=== PATIENT | male | born 1950 | race Two or more races ===

== ENCOUNTER 2024-09-08 13:50 | Observation (INO) | payer OTHER, SELFPAY ==
--- NOTE | 2024-09-07 07:00 | EKG_ITS ---
[facility] Test Date: 2024-09-07 Pat Name: ANGELO CHOW Department: Room: - Gender: Male [employer] Engineer: SANDRO : 1950 Requested By: Darrin Falcon Order Number: [id number] Reading MD: Darrin Falcon Measurements Intervals [place] Rate: 52 P: 55 ND: 159 QRS: -68 QRSD: 101 T: 66 QT: 430 QTc: 402 Interpretive Statements SINUS BRADYCARDIA WITH OCCASIONAL SUPRAVENTRICULAR PREMATURE COMPLEXES LEFT ANTERIOR FASCICULAR BLOCK [QRS AXIS <= -45, QR IN I, RS IN II] No previous ECG available for comparison /store/S0/[id number]/ecg/[id number].pdf
[2024-09-07 07:22] VITALS: BMI 26.4
[2024-09-07 08:14] LABS: Collection Type, Urine Catheter; Squamous Epithelial Cell,Urine 0 /hpf (0-5)
[2024-09-07 09:23] LABS: Basophils # (Auto) 0.0 Thou/mm3 (0.0-0.2); Basophils % (Auto) 1 % (0-2.5); Eosinophils # (Auto) 0.2 Thou/mm3 (0.0-0.5); Eosinophils % (Auto) 3 % (0-10); Hematocrit 43.6 % (41.0-53.0); Hemoglobin 14.2 g/dL (13.5-16.0); Immature Granulocytes Auto 0.01 Thou/mm3 (0.00-0.00); Lymphocytes # (Auto) 2.1 Thou/mm3 (1.0-4.8); Lymphocytes % (Auto) 33 % (10-50); Mean Corpuscular HGB Conc 32.6 g/dl (31.0-37.0); Mean Corpuscular Hemoglobin 30.4 pg (25.0-35.0); Mean Corpuscular Volume 93 fL (80-100); Monocytes # (Auto) 0.5 Thou/mm3 (0.0-0.8); Monocytes % (Auto) 8 % (0-12); Neutrophils # (Auto) 3.5 Thou/mm3 (1.8-7.7); Neutrophils % (Auto) 55 % (37-80); Nucleated Red Blood Cell # 0.00 Thou/mm3 (0.00-0.00); Nucleated Red Blood Cell % 0 /100 WBC (0); Platelet Count 161 Thou/mm3 (140-440); RDW Standard Deviation 47.8 fL (35.1-43.9); Red Blood Count 4.67 Miln/mm3 (4.50-5.90); White Blood Count 6.3 Thou/mm3 (3.8-10.6)
[2024-09-07 09:31] LABS: Amorphous Crystals,Urine Present (Absent); Bacteria,Urine 1+; Bilirubin,Urine Negative (Negative); Blood,Urine Negative (Negative); Color,Urine Lt-Yellow (Lt Yel-Yel); Glucose, Urine Negative (Negative); Ketones,Urine Negative (Negative); Leukocyte Esterase,Urine Positive (Negative); Nitrite,Urine Positive (Negative); PH,Urine 7.5 (5.0-7.0); Protein,Urine Trace (Neg - Trace); RBC,Urine 7 /hpf (0-3); Specific Gravity,Urine 1.017 (1.001-1.035); Urobilinogen,Urine Negative mg/dL (0.0-1.0); WBC,Urine 37 /hpf (0-5)
[2024-09-07 09:41] LABS: Clarity,Urine Hazy (Clear/Hazy)
[2024-09-07 09:47] LABS: Alanine Aminotransferase 15 U/L (10-49); Albumin, Serum 4.1 gm/dL (3.4-4.8); Albumin/Globulin Ratio 1.8 (1.2-2.2); Alkaline Phosphatase 73 U/L (46-116); Anion Gap 10 (7-16); Aspartate Amino Transferase 21 U/L (0-34); BUN/Creatinine Ratio 22 Ratio (12-20); Bilirubin,Total 0.6 mg/dL (0.3-1.2); Blood Urea Nitrogen 20 mg/dL (9-23); Calcium 9.5 mg/dL (8.3-10.6); Calcium (Corrected) 9.5 mg/dL (8.5-10.1); Carbon Dioxide 29.5 mMol/L (20.0-31.0); Chloride 104 mMol/L (98-107); Creatinine (Component) 0.9 mg/dL (0.6-1.3); Estimated Creatinine Clearance 53.3 mL/min (>60); Globulin 2.3 gm/dL (2.3-3.5); Glucose 96 mg/dL (74-106); Osmolality,Calculated 287 (275-295); Potassium 4.3 mMol/L (3.4-5.1); Sodium 143 mMol/L (136-145); Total Protein 6.4 gm/dL (5.7-8.2); eGFR > 60 See Note
--- NOTE | 2024-09-07 11:01 | ESHP_ITS ---
RE: ARLENE CHOW : 1950 DATE OF ADMISSION: 09/07/2024 HISTORY OF PRESENT ILLNESS: The patient is an elderly male, Kyrgyz-speaking, with history of prostatism, prostatic obstruction, and urinary retention. The patient has recurrent urinary retention and has a Reed catheter in place. He is now scheduled to have a transurethral resection of prostate. The patient had a retention when he was in [place]. He had a catheter in. The patient had cystoscopy, which revealed moderate bilobed prostate. No bladder stones or tumors. The catheter was removed. The patient went into urinary retention again. Now, he is scheduled to have transurethral resection of the prostate. The patient previously had nocturia every half an hour with a slow urinary stream. PAST MEDICAL HISTORY: The patient is diabetic. PAST SURGICAL HISTORY: Previous surgeries included knee operations. ALLERGIES: NONE KNOWN. HOME MEDICATIONS: He takes Flomax. SOCIAL HISTORY: The patient has 7 children. PHYSICAL EXAMINATION: HEENT: Normal. NECK: Supple. LUNGS: Clear. HEART: Sounds were normal. ABDOMEN: Soft. GENITOURINARY: There is a Reed catheter in place. Testes are down in scrotum. RECTAL: Examination revealed moderately enlarged smooth prostate. LABORATORY DATA: The patient's PSA is 2.14. Serum creatinine is normal at 0.87. IMPRESSION: 1. Prostatic obstruction. 2. Prostatism. 3. Recurrent urinary retention. PLAN: Cystoscopy and transurethral resection of prostate. Planned procedure, risks, and complications have been discussed with the patient. The patient has understood them and agreed to proceed. DT: 10:34:20 TT: 11:01:00 Ref: [id number] - TID: [id number]
[2024-09-08] VITALS (17 sets, daily range): BP systolic 112–153; BP diastolic 53–92; PULSE 61–92; RESP 11–19; TEMP 36.1–36.4; O2SAT 93–100; BMI 25.5; BMI 23.8
[2024-09-08] MEDS: PIPER/TAZO 3.375 GM PREMIX 3.375 GM/50 ML BAG IV (08:41)
--- NOTE | 2024-09-08 09:28 | SUR.PHASEI ---
pt received from OR in recovery bay 7. pt asleep but responds to voice, breahting unlabored on 8l oxymask. v/s stable. pt dressing to penis cdi, 22fr [address]. report recevied from Cheri ISAACS and Shaggy LOPEZ.
--- NOTE | 2024-09-08 10:15 | ESOP_ITS ---
RE: ARLENE CHOW : 1950 DATE OF OPERATION: 09/08/2024 PREOPERATIVE DIAGNOSES: Prostatic obstruction, prostatism, recurrent urinary retention. POSTOPERATIVE DIAGNOSES: Prostatic obstruction, prostatism, recurrent urinary retention. PROCEDURE PERFORMED: Cystoscopy and transurethral resection of prostate. ANESTHESIA: General. INDICATION: The patient is a 74-year-old gentleman with history of prostatism, prostatic obstruction, and recurrent urinary retention. He has been wearing Reed catheter for a while. Cystoscopy revealed obstructive bilobar prostate. He is now scheduled to have transurethral resection of prostate. Planned procedure, risks, and complications have been discussed with the patient. The patient has understood them and agreed to proceed. DESCRIPTION OF PROCEDURE: After the patient was brought to the operating table under adequate general anesthesia and dorsal lithotomy position, the Reed catheter from the bladder was removed. Parts were prepped and draped in the usual fashion. Cystoscopy was then carried out, which revealed adequate urethral meatus, normal-appearing urethra. Prostatic urethra revealed bilobed obstructive prostate, moderate size. There are no intravesical stones or tumors. The patient has a catheter cystitis. He has been wearing catheter for quite some time. Ureteral orifices are found to be normal in position and appearance. Using a 24 Nepali Storz resectoscope, transurethral resection of the prostate was then carried out. Median lobe, right lobe, and left lobe and the roof of the prostate were resected up to the capsule. Minimal bleeding was encountered, which was controlled by using electrocoagulation. Both ureteral orifices, verumontanum, and external urethral sphincter were prevented from any injury. Resected chips were removed from the bladder by using Rose evacuator. The resectoscope was then removed and a 22-Nepali three-way Reed catheter was inserted into the bladder and was left indwelling. Irrigation of catheter revealed clear return. Catheter was then connected to a sterile bag and the patient was then transferred to the recovery room in a satisfactory condition having tolerated the entire procedure well. DT: 09:41:17 TT: 10:12:00 Ref: [id number] - TID: [id number]
[2024-09-08] MEDS: RINGERS LACTATED 1000 ML 1,000 ML 100 ML IV ×2 (10:20→18:03)
--- NOTE | 2024-09-08 11:43 | SUR.PHASEII ---
pt awake, alert, able to follow commands, breathing unlabored, 22F avila in place and draining with CBI running, VSS, pt denies pain, report from Hernandez LOPEZ
--- NOTE | 2024-09-08 12:14 | SUR.PHASEII ---
Report to Hernandez LOPEZ
--- NOTE | 2024-09-08 13:50 | SUR.PHASEII ---
pt awake and alert, breathing unlabored on room air. v/s stable. pt dressing to penis cdi. avila catheter in place. report called to Jose LOPEZ. pt will be transferred to room at this time.
[2024-09-08] MEDS: LEVOFLOXACIN/D5W 500 MG IVPB 500 MG/100 ML BAG 100 MG IV (17:22)
[2024-09-08] MEDS: TAMSULOSIN HCL 0.4 MG CAPSULE PO (20:43)
--- NOTE | 2024-09-08 21:00 | PC.NURSE ---
PATIENT FEELS PRESSURE ON ER ABDOMEN.BLADDER SCAN DONE 993MLS RESULT.3 WAY PORTILLO CATHETER IRRIGATED ORDERED.,WITH SMALL BLOOD CLOTS NOTED.AFTER IRRIGATION PATIENT FEELS RELIEVED.PORTILLO CATHETER OUTPUT EMPTIED 1,500MLS.WILL CONTINUE TO MONITOR.
[2024-09-08] MEDS: KETOROLAC INJ 30 MG/ML VIAL IVP (22:53)
[2024-09-09] VITALS: BP 112/60; PULSE 72; RESP 17; TEMP 36.2; O2SAT 99
[2024-09-09 04:00] VITALS: BP 126/77; PULSE 74; RESP 17; TEMP 36.3; O2SAT 97
[2024-09-09] MEDS: RINGERS LACTATED 1000 ML 1,000 ML 100 ML IV (04:31)
--- NOTE | 2024-09-09 04:32 | PC.NURSE ---
accessed pt's chart to assist main RN.
[2024-09-09] MEDS: HYDROcodone/APAP 5/325 TABLET 1 TAB PO (05:18)
[2024-09-09 08:00] VITALS: BP 130/72; PULSE 71; RESP 18; TEMP 36.1; O2SAT 94
[2024-09-09 08:32] LABS: Basophils # (Auto) 0.0 Thou/mm3 (0.0-0.2); Basophils % (Auto) 0 % (0-2.5); Eosinophils # (Auto) 0.0 Thou/mm3 (0.0-0.5); Eosinophils % (Auto) 0 % (0-10); Hematocrit 38.8 % (41.0-53.0); Hemoglobin 12.9 g/dL (13.5-16.0); Immature Granulocytes Auto 0.06 Thou/mm3 (0.00-0.00); Lymphocytes # (Auto) 1.2 Thou/mm3 (1.0-4.8); Lymphocytes % (Auto) 9 % (10-50); Mean Corpuscular HGB Conc 33.2 g/dl (31.0-37.0); Mean Corpuscular Hemoglobin 30.6 pg (25.0-35.0); Mean Corpuscular Volume 92 fL (80-100); Monocytes # (Auto) 0.8 Thou/mm3 (0.0-0.8); Monocytes % (Auto) 6 % (0-12); Neutrophils # (Auto) 11.5 Thou/mm3 (1.8-7.7); Neutrophils % (Auto) 84 % (37-80); Nucleated Red Blood Cell # 0.00 Thou/mm3 (0.00-0.00); Nucleated Red Blood Cell % 0 /100 WBC (0); Platelet Count 131 Thou/mm3 (140-440); RDW Standard Deviation 46.2 fL (35.1-43.9); Red Blood Count 4.21 Miln/mm3 (4.50-5.90); White Blood Count 13.7 Thou/mm3 (3.8-10.6)
[2024-09-09] MEDS: TAMSULOSIN HCL 0.4 MG CAPSULE PO (08:32)
[2024-09-09 08:56] LABS: Albumin, Serum 3.4 gm/dL (3.4-4.8); Anion Gap 7 (7-16); BUN/Creatinine Ratio 16 Ratio (12-20); Blood Urea Nitrogen 14 mg/dL (9-23); Calcium 8.4 mg/dL (8.3-10.6); Calcium (Corrected) 8.9 mg/dL (8.5-10.1); Carbon Dioxide 27.9 mMol/L (20.0-31.0); Chloride 106 mMol/L (98-107); Creatinine (Component) 0.9 mg/dL (0.6-1.3); Estimated Creatinine Clearance 55.6 mL/min (>60); Glucose 131 mg/dL (74-106); Osmolality,Calculated 283 (275-295); Phosphorous 4.1 mg/dL (2.4-5.1); Potassium 4.0 mMol/L (3.4-5.1); Sodium 141 mMol/L (136-145); eGFR > 60 See Note
--- NOTE | 2024-09-09 10:52 | PC.SS ---
Patient Jose Manuel High is a 74 Year old male admitted for Prost. SS met with patient at bedside to discuss discharge plan and verify demographic information. Patient reports he lives at home with his , Eva High. he reports his daughter, Eva High is surrogate decision maker, [phone]. Patient reports that prior to admission he did not utilize any source of DME to assist with ambulation, patient is able to complete all ADL's independently. Patient reports his PCP is Mandeep Robbins. At time of discharge patient will return back home, patient's family will provide transportation. Next of kin: Daughter, Eva High [phone] Discharge Plan: Home
[2024-09-09 12:00] VITALS: BP 134/78; PULSE 63; RESP 17; TEMP 36.1; O2SAT 97
[2024-09-09] MEDS: LEVOFLOXACIN/D5W 500 MG IVPB 500 MG/100 ML BAG 100 MG IV (13:38)
--- NOTE | 2024-09-09 13:56 | PC.NURSE ---
Changed avila catheter drainage bag to leg bag at patient's request.
--- NOTE | 2024-09-09 14:12 | PC.SS ---
SS follow up note; Urine and Blood cultures pending, Patient will discharge home when medically cleared.
== END 2024-09-09 15:05 | disposition home or self-care (01) ==
LOC: S3NX 14:23
PROVIDERS: Anesthesiology; Admitting Provider Surgery; PCP Family Medicine; Referring Provider Surgery; Visit Provider Surgery
PROC: 0VT08ZZ Resection of Prostate, Via Natural or Artificial Opening Endoscopic (ICD-10-PCS; CPT 52601; principal; 2024-09-08 08:30)
DX: N40.1 Benign prostatic hyperplasia with lower urinary tract symptoms (principal); Z01.810 Encounter for preprocedural cardiovascular examination; R33.9 Retention of urine, unspecified; E11.9 Type 2 diabetes mellitus without complications
CPT/HCPCS: 52601; 36415; 80053; 80069; 81001; 85025; 87077; 87086; 87186; 93005; 96361; 96374; A4217; A4649; G0378; J0131; J0461; J1100; J1885; J1956; J2371; J2405; J2543; J2704; J3010; J3490; J7120; A9270; J1596